=== PATIENT | female | born 1970 | race Caucasian/White ===

== ENCOUNTER 2016-10-18 15:59 | Outpatient (CLI) | payer BC ==
[~2016-10-18] VITALS: Ht 170.2 cm; Wt 84.0 kg
[~2016-10-18 15:59] MED LIST: AMOXICILLIN 8751 TAB PO; HUMIRA40 MG/0.1 SC; PERCOCET 325 MG1 TA2 PO; TYLENOL 500MG500 MG PO; VASOTEC 5MG5 MG/TAB PO; [UNRECOGNIZED DRUG - REMARK]
[2016-10-18 16:35] LABS: BASO % 0.3 % (0.0-2.0); EOS % 0.2 % (0-4.0); GRAN # 8.1 (1.4-6.5); GRAN % 82.4 % (42.2-75.2); HEMATOCRIT 42.6 % (37.0-47.0); HEMOGLOBIN 13.2 g/dl (12.5-16.0); LYMPH # 1.4 (1.2-3.4); LYMPH % 14.1 % (20.0-51.0); MEAN CELL VOLUME 83 fl (80.0-100.0); MEAN CORPUSCULAR HEMOGLOBIN 26 pg (27.0-31.0); MEAN CORPUSCULAR HGB CONC 31 g/dl (33.0-37.0); MEAN PLATELET VOLUME 10.7 fl (7.4-10.4); MONO # 0.3 (0.1-0.6); MONO % 2.7 % (1.7-9.3); PLATELET COUNT 339 K/mm3 (130-400); RED BLOOD COUNT 5.13 M/mm3 (4.10-5.30); REDCELL DISTRIBUTION WIDTH-CV 14.2 % (11.5-14.5); WHITE BLOOD COUNT 9.9 K/mm3 (4.8-10.8)
[2016-10-18 16:51] LABS: ADJUSTED CALCIUM 9.4 mg/dL (8.4-10.2); ALBUMIN 4.3 gm/dL (3.5-5.0); BILIRUBIN,TOTAL 0.6 mg/dL (0.0-1.0); CALCIUM 9.6 mg/dL (8.4-10.2); CREATININE, serum 0.78 mg/dL (0.52-1.25); POTASSIUM 4.1 mmol/L (3.4-5.0); TOTAL PROTEIN 8.3 gm/dL (6.4-8.2)
[2016-10-18] MEDS ORDERED: CELEBREX 200MG200 MG PO (17:32)
== END 2016-10-18 18:52 | disposition home health service (06) ==
LOC: EUO 15:59
PROVIDERS: Emergency Medicine
DX: K52.89 Other specified noninfective gastroenteritis and colitis (principal)
CPT/HCPCS: J2270; J2405; J7030

== ENCOUNTER 2017-03-26 19:22 | Emergency (ER) | payer BC ==
[~2017-03-26] VITALS: Ht 170.2 cm; Wt 81.8 kg
[~2017-03-26 19:22] MED LIST changes: +CELEBREX 200MG200 MG PO
[2017-03-26 19:24] VITALS: TEMP 99.7
[2017-03-26] MEDS ORDERED: NOLVADEX 1010 MG/TAB PO (19:28)
[2017-03-26] MEDS ORDERED: CYMBALTA 30MG30 MG PO (19:29)
[2017-03-26 20:21] LABS: BASO % 0.2 % (0.0-2.0); EOS % 0.2 % (0-4.0); GRAN # 8.5 (1.4-6.5); GRAN % 83.9 % (42.2-75.2); LYMPH # 1.2 (1.2-3.4); LYMPH % 11.5 % (20.0-51.0); MEAN CELL VOLUME 84 fl (80.0-100.0); MEAN CORPUSCULAR HGB CONC 31 g/dl (33.0-37.0); MEAN PLATELET VOLUME 10.1 fl (7.4-10.4); MONO # 0.4 (0.1-0.6); MONO % 3.8 % (1.7-9.3); PLATELET COUNT 273 K/mm3 (130-400); RED BLOOD COUNT 4.36 M/mm3 (4.10-5.30); REDCELL DISTRIBUTION WIDTH-CV 13.9 % (11.5-14.5); WHITE BLOOD COUNT 10.1 K/mm3 (4.8-10.8)
[2017-03-26 20:22] LABS: HEMATOCRIT 36.7 % (37.0-47.0); HEMOGLOBIN 11.4 g/dl (12.5-16.0); MEAN CORPUSCULAR HEMOGLOBIN 26 pg (27.0-31.0)
[2017-03-26 20:30] LABS: ALBUMIN 4.1 gm/dL (3.5-5.0); BILIRUBIN,TOTAL 0.6 mg/dL (0.0-1.0); CALCIUM 9.1 mg/dL (8.4-10.2); CREATININE, serum 0.65 mg/dL (0.52-1.25); POTASSIUM 3.8 mmol/L (3.4-5.0); TOTAL PROTEIN 7.6 gm/dL (6.4-8.2)
[2017-03-26] MEDS ORDERED: ZOFRAN ODT4 MG PO (21:10)
[2017-03-26 21:39] LABS: PH 6 (5-8); SQUAMOUS EPITHELIAL 0-2 /hpf; URINE APPEARANCE Clear; URINE BACTERIA Rare /hpf; URINE BILIRUBIN Negative (NEGATIVE); URINE BLOOD 1+ (NEGATIVE); URINE COLOR Yellow; URINE GLUCOSE Negative (NEGATIVE); URINE KETONE Negative (NEGATIVE); URINE RBC 0-2 /hpf; URINE UROBILINOGEN Negative (NEGATIVE); URINE WBC 0-2 /hpf
[2017-03-26 22:04] VITALS: BP 148/72; PULSE 96
== END 2017-03-26 22:06 | disposition home or self-care (01) ==
LOC: COL.ER 19:22
PROVIDERS: Family Medicine
DX: E86.0 Dehydration (principal); K52.9 Noninfective gastroenteritis and colitis, unspecified; L40.50 Arthropathic psoriasis, unspecified
CPT/HCPCS: J2270; J2405; J7030

== ENCOUNTER 2017-09-30 07:51 | Emergency (ER) | payer BC ==
[~2017-09-30] VITALS: Ht 170.2 cm; Wt 86.4 kg
[~2017-09-30 07:51] MED LIST changes: +CYMBALTA 30MG30 MG PO; +NOLVADEX 1010 MG/TAB PO; +PHENERGAN 25 TA25 MG PO; +ZOFRAN ODT4 MG PO
[2017-09-30 07:57] VITALS: TEMP 98.3
[2017-09-30] MEDS ORDERED: PREDNISONE20 MG PO (08:00)
[2017-09-30 08:59] VITALS: BP 146/73; PULSE 101
== END 2017-09-30 09:06 | disposition home or self-care (01) ==
LOC: COL.ER 07:51
DX: G89.29 Other chronic pain (principal); Z90.13 Acquired absence of bilateral breasts and nipples
CPT/HCPCS: J1170; J2550

== ENCOUNTER 2017-10-06 19:33 | Emergency (ER) | payer BC ==
[~2017-10-06] VITALS: Ht 170.2 cm; Wt 86.4 kg
[~2017-10-06 19:33] MED LIST changes: +PREDNISONE20 MG PO
[2017-10-06 19:42] VITALS: BP 139/83; TEMP 98.5
[2017-10-06] MEDS ORDERED: PERCOCET 325 MG1 TAB PO (19:55)
[2017-10-06 20:17] LABS: BASO # 0.1 (0.0-0.2); BASO % 0.5 % (0.0-2.0); EOS # 0.1 (0.0-0.7); EOS % 0.5 % (0-4.0); GRAN # 5.9 (1.4-6.5); GRAN % 53.9 % (42.2-75.2); HEMATOCRIT 38.9 % (37.0-47.0); HEMOGLOBIN 12.3 g/dl (12.5-16.0); LYMPH # 4.2 (1.2-3.4); LYMPH % 38.8 % (20.0-51.0); MEAN CELL VOLUME 84 fl (80.0-100.0); MEAN CORPUSCULAR HEMOGLOBIN 27 pg (27.0-31.0); MEAN CORPUSCULAR HGB CONC 32 g/dl (33.0-37.0); MEAN PLATELET VOLUME 10.2 fl (7.4-10.4); MONO # 0.7 (0.1-0.6); PLATELET COUNT 342 K/mm3 (130-400); RED BLOOD COUNT 4.62 M/mm3 (4.10-5.30); WHITE BLOOD COUNT 10.9 K/mm3 (4.8-10.8)
[2017-10-06 20:31] LABS: ADJUSTED CALCIUM 9.4 mg/dL (8.4-10.2); ALANINE AMINOTRANSFERASE 26 U/L (9-52); ALBUMIN 4.3 gm/dL (3.5-5.0); ALKALINE PHOSPHATASE 59 U/L (50-136); ANION GAP 11 mmol/L (7-16); BILIRUBIN,TOTAL 0.4 mg/dL (0.0-1.0); BLOOD UREA NITROGEN 11 mg/dL (7-17); CALCIUM 9.6 mg/dL (8.4-10.2); CARBON DIOXIDE 25 mmol/L (22-30); CHLORIDE 104 mmol/L (98-107); GLUCOSE 132 mg/dL (74-106); POTASSIUM 3.8 mmol/L (3.4-5.0); SODIUM 140 mmol/L (137-145); TOTAL PROTEIN 7.5 gm/dL (6.4-8.2)
[2017-10-06 20:34] LABS: INFLUENZA A NEGATIVE; INFLUENZA B NEGATIVE
[2017-10-06 20:35] LABS: C-REACTIVE PROTEIN < 0.5 mg/dL (0.0-0.9)
[2017-10-06 22:24] VITALS: PULSE 97
== END 2017-10-06 22:24 | disposition home or self-care (01) ==
LOC: COL.ER 19:33
PROVIDERS: Emergency Medicine
DX: G89.29 Other chronic pain (principal); L40.50 Arthropathic psoriasis, unspecified
CPT/HCPCS: J2765; J3010; J7030